=== PATIENT | female | born 1930 | race Caucasian/White ===

== ENCOUNTER 2021-09-29 15:04 | Emergency (ER) | payer MEDICARE ==
[~2021-09-29] VITALS: Ht 165.1 cm; Wt 54.6 kg
[2021-09-29 15:16] LABS: BASOPHILS % (AUTO) 1 % (0-10); EOSINOPHILS # (AUTO) 0.2 10^3/uL (0.0-0.3); EOSINOPHILS % (AUTO) 3 % (0-10); HEMATOCRIT 36 % (35-52); HEMOGLOBIN 11.3 g/dL (11.5-16.0); LYMPHOCYTES % (AUTO) 14 % (12-44); MEAN CORPUSCULAR HEMOGLOBIN 30 pg (25-34); MEAN CORPUSCULAR HGB CONC 32 g/dL (32-36); MEAN CORPUSCULAR VOLUME 93 fL (80-99); MEAN PLATELET VOLUME 10.1 fL (9.0-12.2); MONOCYTES # (AUTO) 0.4 10^3/uL (0.0-1.0); MONOCYTES % (AUTO) 6 % (0-12); NEUTROPHILS # (AUTO) 5.2 10^3/uL (1.8-7.8); NEUTROPHILS % (AUTO) 76 % (42-75); PLATELET COUNT 188 10^3/uL (130-400); WHITE BLOOD COUNT 6.9 10^3/uL (4.3-11.0)
--- NOTE | 2021-09-29 15:17 | ED General ---
General Chief Complaint: Respiratory Problems Stated Complaint: CHEST PAIN; SOB History of Present Illness Date Seen by Provider: September 29, 2021 Time Seen by Provider: 15:12 Initial Comments 89-year-old female [facility] Patient had a episode of some mild pain near her left breast. Lasted about 15 minutes and spontaneously resolved. halfway reports your oxygen was low however EMS reports when they got there it was in the upper 90s. Patient did not complain of shortness of breath. Patient denies any fever, chills, nausea or vomiting. Patient's symptoms of chest pain have resolved. Patient denies associated diaphoresis. And the pain did not radiate. Patient describes it as a sharp pain. Allergies and Home Medications Allergies Coded Allergies: bacitracin (Verified Allergy, Severe, Angioedema, 09/29/21) neomycin (Verified Allergy, Severe, Angioedema, 09/29/21) polymyxin B (Verified Allergy, Severe, Angioedema, 09/29/21) Beta-Adrenergic Agents (Verified Allergy, Unknown, Shortness of Breath, 09/29/21) sulfamethoxazole (Verified Adverse Reaction, Mild, Nausea, 09/29/21) trimethoprim (Verified Adverse Reaction, Mild, Nausea, 09/29/21) amoxicillin (Verified Adverse Reaction, Unknown, Nausea, 09/29/21) levofloxacin (Verified Adverse Reaction, Unknown, Nausea, 09/29/21) Patient Home Medication List Home Medication List Reviewed: Yes Review of Systems Review of Systems Constitutional: No chills, No fever Cardiovascular: chest pain; No palpitations, No syncope Gastrointestinal: no symptoms reported; No abdominal pain, No nausea, No vomiting Genitourinary: no symptoms reported Musculoskeletal: see HPI Skin: no symptoms reported Psychiatric/Neurological: No Symptoms Reported Hematologic/Lymphatic: No Symptoms Reported Immunological/Allergic: no symptoms reported Physical Exam Vital Signs Vital Signs - First Documented 09/29/21 15:07 Temp 36.7 Pulse 58 Resp 14 Pulse Ox 98 O2 Delivery Room Air Capillary Refill : Height, Weight, BMI Height: '" Weight: lbs. oz. 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 Skin: Normal Color, Warm/Dry Progress/Results/Core Measures Suspected Sepsis SIRS Temperature: Pulse: Respiratory Rate: Laboratory Tests 09/29/21 15:10: White Blood Count 6.9 Blood Pressure / Mean: Laboratory Tests 09/29/21 15:10: Creatinine 0.96, Platelet Count 188, Total Bilirubin 0.4 Results/Orders Lab Results Laboratory Tests Test 09/29/21 15:10 09/29/21 17:03 Range/Units White Blood Count 6.9 4.3-11.0 10^3/uL Red Blood Count 3.82 3.80-5.11 10^6/uL Hemoglobin 11.3 L 11.5-16.0 g/dL Hematocrit 36 35-52 % Mean Corpuscular Volume 93 80-99 fL Mean Corpuscular Hemoglobin 30 25-34 pg Mean Corpuscular Hemoglobin Concent 32 32-36 g/dL Red Cell Distribution Width 14.2 10.0-14.5 % Platelet Count 188 130-400 10^3/uL Mean Platelet Volume 10.1 9.0-12.2 fL Immature Granulocyte % (Auto) 0 % Neutrophils (%) (Auto) 76 H 42-75 % Lymphocytes (%) (Auto) 14 12-44 % Monocytes (%) (Auto) 6 0-12 % Eosinophils (%) (Auto) 3 0-10 % Basophils (%) (Auto) 1 0-10 % Neutrophils # (Auto) 5.2 1.8-7.8 10^3/uL Lymphocytes # (Auto) 1.0 1.0-4.0 10^3/uL Monocytes # (Auto) 0.4 0.0-1.0 10^3/uL Eosinophils # (Auto) 0.2 0.0-0.3 10^3/uL Basophils # (Auto) 0.0 0.0-0.1 10^3/uL Immature Granulocyte # (Auto) 0.0 0.0-0.1 10^3/uL Sodium Level 139 135-145 MMOL/L Potassium Level 4.4 3.6-5.0 MMOL/L Chloride Level 101 98-107 MMOL/L Carbon Dioxide Level 27 21-32 MMOL/L Anion Gap 11 5-14 MMOL/L Blood Urea Nitrogen 25 H 7-18 MG/DL Creatinine 0.96 0.60-1.30 MG/DL Estimat Glomerular Filtration Rate 57 BUN/Creatinine Ratio 26 Glucose Level 107 H 70-105 MG/DL Calcium Level 10.1 8.5-10.1 MG/DL Corrected Calcium 10.0 8.5-10.1 MG/DL Magnesium Level 1.8 1.6-2.4 MG/DL Total Bilirubin 0.4 0.1-1.0 MG/DL Aspartate Amino Transf (AST/SGOT) 18 5-34 U/L Alanine Aminotransferase (ALT/SGPT) 9 0-55 U/L Alkaline Phosphatase 111 40-136 U/L Troponin I < 0.30 < 0.30 <0.30 NG/ML Pro-B-Type Natriuretic Peptide 2208.0 H <75.0 PG/ML Total Protein 6.3 L 6.4-8.2 GM/DL Albumin 4.1 3.2-4.5 GM/DL My Orders Orders - GR,ELPIDIO L DO Chest 1 View Ap/Pa Only (09/29/21 15:11) Ekg Tracing (09/29/21 15:11) Monitor-Rhythm Ecg Trace Only (09/29/21 15:11) Cbc With Automated Diff (09/29/21 15:11) Comprehensive Metabolic Panel (09/29/21 15:11) Magnesium (09/29/21 15:11) Probnp Fs (09/29/21 15:11) Troponin I Fs (09/29/21 15:11) Troponin I Fs (09/29/21 16:48) Vital Signs/I&O 09/29/21 09/29/21 15:07 15:22 Temp 36.7 Pulse 58 Resp 14 B/P (MAP) Pulse Ox 98 O2 Delivery Room Air Room Air Capillary Refill : Progress Note : Progress Note Patient remained symptom-free while here in the ER. Patient with negative cute changes on EKG, negative x-ray for any significant pathology. She does have a small pleural effusion. As I was going over results with patient she reported that "I have actually had this going on for a long time I think I just scared them today because I thought my oxygen was a little low" discussed with patient the need to follow-up with her primary care provider for further evaluation. Patient stable and discharged home ECG Initial ECG Impression Date: September 29, 2021 Initial ECG Impression Time: 15:12 Initial ECG Rate: 56 Initial ECG Rhythm: A Fib/Flutter, PVC Initial ECG Intervals RBBB Comment irregular rhythm, appears afib with pvc Diagnostic Imaging Diagonstic Imaging: Xray Plain Films/CT/US/NM/MRI: chest Comments Date of Exam:09/29/21 CHEST 1 VIEW AP/PA ONLY INDICATION: Shortness of breath, left-sided chest pain. EXAMINATION: Chest, 09/29/2021. FINDINGS: Single view of the chest demonstrates cardiomegaly. The pulmonary vasculature appears unremarkable. The lungs are clear. There is a tiny right pleural effusion. There is no pneumothorax. There are degenerative changes in both shoulders. IMPRESSION: 1. Tiny right pleural effusion. 2. Cardiomegaly. Departure Impression Primary Impression: Nonspecific chest pain Disposition: 01 HOME, SELF-CARE Condition: Stable Departure-Patient Inst. Patient Instructions: Chest Pain That Is Not Caused by the Heart (DC), Chest Pain, Adult ED Add. Discharge Instructions: Follow-up with your primary care provider for further evaluation. Return to the ER as needed All discharge instructions reviewed with patient and/or family. Voiced underst anding. ELPIDIO GR DO September 29, 2021 15:17
--- NOTE | 2021-09-29 15:31 | Diagnostic Imaging Report ---
INDICATION: Shortness of breath, left-sided chest pain. EXAMINATION: Chest, 09/29/2021. FINDINGS: Single view of the chest demonstrates cardiomegaly. The pulmonary vasculature appears unremarkable. The lungs are clear. There is a tiny right pleural effusion. There is no pneumothorax. There are degenerative changes in both shoulders. IMPRESSION: 1. Tiny right pleural effusion. 2. Cardiomegaly. Dictated by: Dictated on workstation # [id number]
[2021-09-29 15:47] LABS: ALKALINE PHOSPHATASE 111 U/L (40-136); BILIRUBIN,TOTAL 0.4 MG/DL (0.1-1.0); BUN/CREATININE RATIO 26; CALCIUM 10.1 MG/DL (8.5-10.1); CARBON DIOXIDE 27 MMOL/L (21-32); CHLORIDE 101 MMOL/L (98-107); CREATININE SERUM 0.96 MG/DL (0.60-1.30); GFR ESTIMATED 57; GLUCOSE 107 MG/DL (70-105); MAGNESIUM 1.8 MG/DL (1.6-2.4); POTASSIUM 4.4 MMOL/L (3.6-5.0); SODIUM 139 MMOL/L (135-145)
[2021-09-29 15:48] LABS: ALANINE AMINOTRANSFERASE 9 U/L (0-55); ALBUMIN 4.1 GM/DL (3.2-4.5); TOTAL PROTEIN 6.3 GM/DL (6.4-8.2)
[2021-09-29 18:05] VITALS: BP 131/62
== END 2021-09-29 18:08 | disposition home or self-care (01) ==
LOC: ER FS 15:05
DX: R07.89 Other chest pain (principal); J91.8 Pleural effusion in other conditions classified elsewhere
CPT/HCPCS: 36415; 71045; 80053; 83735; 83880; 84484; 85025; 93005; 93041

== ENCOUNTER 2022-05-04 19:23 | Emergency (ER) | payer MEDICARE ==
--- NOTE | 2022-05-04 19:27 | ED General ---
General Stated Complaint: SLOW HEART RATE History of Present Illness Date Seen by Provider: May 04, 2022 Time Seen by Provider: 19:26 Initial Comments Patient sent out by [facility] because they were concerned about a "low heart rate" patient herself has no complaints. Reports that they were checking her oxygen and her heart rate seem to be in the 50s. Patient is on diltiazem. Patient complaint is that she getting sleep last night because they kept checking her heart rate. Other systemic complaints Allergies and Home Medications Allergies Coded Allergies: bacitracin (Verified Allergy, Severe, Angioedema, 09/29/21) neomycin (Verified Allergy, Severe, Angioedema, 09/29/21) polymyxin B (Verified Allergy, Severe, Angioedema, 09/29/21) Beta-Adrenergic Agents (Verified Allergy, Unknown, Shortness of Breath, 09/29/21) sulfamethoxazole (Verified Adverse Reaction, Mild, Nausea, 09/29/21) trimethoprim (Verified Adverse Reaction, Mild, Nausea, 09/29/21) amoxicillin (Verified Adverse Reaction, Unknown, Nausea, 09/29/21) levofloxacin (Verified Adverse Reaction, Unknown, Nausea, 09/29/21) Patient Home Medication List Home Medication List Reviewed: Yes Review of Systems Review of Systems Constitutional: No chills, No fever EENTM: no symptoms reported Respiratory: no symptoms reported Cardiovascular: see HPI Gastrointestinal: no symptoms reported Genitourinary: no symptoms reported Musculoskeletal: no symptoms reported Skin: no symptoms reported Psychiatric/Neurological: No Symptoms Reported Physical Exam Vital Signs Vital Signs - First Documented 05/04/22 19:23 Temp 36.8 Pulse 64 Resp 20 B/P (MAP) 102/60 (74) Pulse Ox 99 O2 Delivery Room Air Capillary Refill : Height, Weight, BMI Height: '" Weight: lbs. oz. kg; 20.00 BMI Method: General Appearance: No Apparent Distress, WD/WN HEENT: Moist Mucous Membranes Neck: Full Range of Motion, Supple Respiratory: Lungs Clear, Normal Breath Sounds Cardiovascular: Regular Rate, Rhythm, No Edema Gastrointestinal: Soft Extremity: Normal Capillary Refill, Normal Inspection Neurologic/Psychiatric: Alert, Oriented x3, Normal Mood/Affect Skin: Normal Color, Warm/Dry Progress/Results/Core Measures Suspected Sepsis SIRS Temperature: Pulse: Respiratory Rate: Laboratory Tests 05/04/22 19:41: White Blood Count 7.3 Blood Pressure / Mean: Laboratory Tests 05/04/22 19:41: Creatinine 1.16, Platelet Count 184 Results/Orders Lab Results Laboratory Tests Test 05/04/22 19:41 Range/Units White Blood Count 7.3 4.3-11.0 10^3/uL Red Blood Count 3.62 L 3.80-5.11 10^6/uL Hemoglobin 11.5 11.5-16.0 g/dL Hematocrit 34 L 35-52 % Mean Corpuscular Volume 95 80-99 fL Mean Corpuscular Hemoglobin 32 25-34 pg Mean Corpuscular Hemoglobin Concent 34 32-36 g/dL Red Cell Distribution Width 12.9 10.0-14.5 % Platelet Count 184 130-400 10^3/uL Mean Platelet Volume 11.1 9.0-12.2 fL Immature Granulocyte % (Auto) 0 % Neutrophils (%) (Auto) 73 42-75 % Lymphocytes (%) (Auto) 13 12-44 % Monocytes (%) (Auto) 8 0-12 % Eosinophils (%) (Auto) 5 0-10 % Basophils (%) (Auto) 1 0-10 % Neutrophils # (Auto) 5.3 1.8-7.8 10^3/uL Lymphocytes # (Auto) 0.9 L 1.0-4.0 10^3/uL Monocytes # (Auto) 0.6 0.0-1.0 10^3/uL Eosinophils # (Auto) 0.4 H 0.0-0.3 10^3/uL Basophils # (Auto) 0.1 0.0-0.1 10^3/uL Immature Granulocyte # (Auto) 0.0 0.0-0.1 10^3/uL Sodium Level 137 135-145 MMOL/L Potassium Level 4.1 3.6-5.0 MMOL/L Chloride Level 103 98-107 MMOL/L Carbon Dioxide Level 27 21-32 MMOL/L Anion Gap 7 5-14 MMOL/L Blood Urea Nitrogen 31 H 7-18 MG/DL Creatinine 1.16 0.60-1.30 MG/DL Estimat Glomerular Filtration Rate 45 BUN/Creatinine Ratio 27 Glucose Level 102 70-105 MG/DL Calcium Level 10.2 H 8.5-10.1 MG/DL My Orders Orders - GR,ELPIDIO L DO Basic Metabolic Panel (05/04/22 19:27) Cbc With Automated Diff (05/04/22 19:27) Ekg Tracing (05/04/22 19:27) Monitor-Rhythm Ecg Trace Only (05/04/22 19:27) Vital Signs/I&O 05/04/22 05/04/22 19:23 20:35 Temp 36.8 36.8 Pulse 64 65 Resp 20 21 B/P (MAP) 102/60 (74) 141/68 Pulse Ox 99 98 O2 Delivery Room Air Room Air Capillary Refill : Progress Note : Progress Note Patient's heart rate ranged from about 58-70. No concerning rhythm changes or concerning lab findings. She is stable and with no complaints throughout her stay. Patient can follow-up with her primary care provider with any concerns from the [facility]-way. However her heart rate is acceptable based on the medication she is on. ECG Initial ECG Impression Date: May 04, 2022 Initial ECG Impression Time: 19:29 Initial ECG Rate: 64 Initial ECG Rhythm: PVC Initial ECG Impression: Nonspecific Changes Initial ECG Comparisson: Unchanged (09/29/21) Comment Occasional PVCs,, nonspecific rhythm, no acute changes from 10/11/2021 Departure Impression Primary Impression: Heart rate problem Disposition: 01 HOME, SELF-CARE Condition: Stable Departure-Patient Inst. Referrals: YESENIA DUENAS MD (PCP/Family) Primary Care Physician Patient Instructions: Bradycardia (DC) Add. Discharge Instructions: Follow-up with a primary care provider as needed ELPIDIO GR DO May 04, 2022 19:27
[2022-05-04 19:48] LABS: BASOPHILS # (AUTO) 0.1 10^3/uL (0.0-0.1); BASOPHILS % (AUTO) 1 % (0-10); EOSINOPHILS # (AUTO) 0.4 10^3/uL (0.0-0.3); EOSINOPHILS % (AUTO) 5 % (0-10); HEMATOCRIT 34 % (35-52); HEMOGLOBIN 11.5 g/dL (11.5-16.0); LYMPHOCYTES # (AUTO) 0.9 10^3/uL (1.0-4.0); LYMPHOCYTES % (AUTO) 13 % (12-44); MEAN CORPUSCULAR HEMOGLOBIN 32 pg (25-34); MEAN CORPUSCULAR HGB CONC 34 g/dL (32-36); MEAN CORPUSCULAR VOLUME 95 fL (80-99); MEAN PLATELET VOLUME 11.1 fL (9.0-12.2); MONOCYTES # (AUTO) 0.6 10^3/uL (0.0-1.0); MONOCYTES % (AUTO) 8 % (0-12); NEUTROPHILS # (AUTO) 5.3 10^3/uL (1.8-7.8); NEUTROPHILS % (AUTO) 73 % (42-75); PLATELET COUNT 184 10^3/uL (130-400); WHITE BLOOD COUNT 7.3 10^3/uL (4.3-11.0)
[2022-05-04 20:10] LABS: CALCIUM 10.2 MG/DL (8.5-10.1); CREATININE SERUM 1.16 MG/DL (0.60-1.30); POTASSIUM 4.1 MMOL/L (3.6-5.0)
[2022-05-04 20:35] VITALS: BP 141/68
== END 2022-05-04 20:35 | disposition home or self-care (01) ==
LOC: EDUNIT# 19:23 → ER FS 19:24
DX: R00.1 Bradycardia, unspecified (principal)
CPT/HCPCS: 36415; 80048; 85025; 93005; 93041

== ENCOUNTER 2022-11-10 14:14 | Emergency (ER) | payer MEDICARE ==
--- NOTE | 2022-11-10 14:20 | ED Fall/Injury ---
General Chief Complaint: Hip/Pelvic Problems Stated Complaint: FALL History of Present Illness Date Seen by Provider: Nov 10, 2022 Time Seen by Provider: 14:20 Initial Comments 89-year-old female from assisted living who is on Coumadin and has a history of 3 hip replacements and knee replacement, is brought in by EMS with complaints of tripping and falling today, resulting in a laceration to her right eyebrow and right hip, thigh, knee pain. Patient states that she was trying to tie her shoelaces when she tripped over her shoelaces and feet and fell. Denies dizziness, lightheadedness, blurry vision, headache, neck pain, LOC, nausea vomiting. Allergies and Home Medications Allergies Coded Allergies: bacitracin (Verified Allergy, Severe, Angioedema, 09/29/21) neomycin (Verified Allergy, Severe, Angioedema, 09/29/21) polymyxin B (Verified Allergy, Severe, Angioedema, 09/29/21) Beta-Adrenergic Agents (Verified Allergy, Unknown, Shortness of Breath, 09/29/21) sulfamethoxazole (Verified Adverse Reaction, Mild, Nausea, 09/29/21) trimethoprim (Verified Adverse Reaction, Mild, Nausea, 09/29/21) amoxicillin (Verified Adverse Reaction, Unknown, Nausea, 09/29/21) levofloxacin (Verified Adverse Reaction, Unknown, Nausea, 09/29/21) Patient Home Medication List Home Medication List Reviewed: Yes Review of Systems Review of Systems Constitutional: no symptoms reported Eyes: No Symptoms Reported Ears, Nose, Mouth, Throat: no symptoms reported Respiratory: no symptoms reported Cardiovascular: no symptoms reported Gastrointestinal: no symptoms reported Genitourinary: no symptoms reported Musculoskeletal: see HPI, joint pain Skin: see HPI, other (Right eyebrow laceration) Psychiatric/Neurological: No Symptoms Reported Past Vkvhylp-Sylegc-Zhbfve Hx Immunizations Up To Date First/Initial COVID19 Vaccinat: unknown Past Medical History Surgery/Hospitalization HX: A Fib history, knee replacements, ORIF R hip, R hip replacement Physical Exam Vital Signs Vital Signs - First Documented 11/10/22 14:36 Temp 35.6 Pulse 62 Resp 16 B/P (MAP) 122/70 (87) Pulse Ox 99 O2 Delivery Room Air Capillary Refill : Height, Weight, BMI Height: '" Weight: lbs. oz. kg; 20.00 BMI Method: General Appearance: WD/WN, no apparent distress HEENT: PERRL/EOMI, normal ENT inspection Neck: non-tender, full range of motion, normal inspection Cardiovascular: regular rate, rhythm Respiratory: lungs clear Gastrointestinal: non tender, soft Pelvic: normal external exam Back: normal inspection, no vertebral tenderness Extremities: normal range of motion, normal inspection, no pedal edema, no calf tenderness, pelvis stable, other (Right-sided hip, upper lateral one third of the thigh, and right knee tenderness. N/V bundle intact, ROM appears restricted only due to pain.) Skin: other (Two laceration near right eyebrow, the first is 1.25cm long with overlying skin missing. Second laceration is parallel to the first and is 0.25cm long, also not bleeding. Clean wounds. ) Moroni Coma Score Best Eye Response: (4) Open Spontaneously Best Verbal Response: (5) Oriented Best Motor Response: (6) Obeys Commands Moroni Total: 15 Progress/Results/Core Measures Results/Orders My Orders Orders - CHRISTOPHER ARENAS MD Femur 2 View Right (11/10/22 14:21) Knee 2 View Right (11/10/22 14:21) Pelvis With Right Hip 2-3 View (11/10/22 14:21) Ct Head Wo (11/10/22 14:22) Vital Signs/I&O 11/10/22 14:36 Temp 35.6 Pulse 62 Resp 16 B/P (MAP) 122/70 (87) Pulse Ox 99 O2 Delivery Room Air Progress Progress Note : Progress Note 1. TRIP & FALL: BONE CONTUSION - Pt is on Coumadin - CT HEAD: no acute findings - XR RIGHT HIP/ PELVIS: No acute findings - XR RIGHT FEMUR/ KNEE: no acute findings. 2. RIGHT EYEBROW LACERATION: - 2 Steristrips placed on the first lac and 1 steri-strip placed on the second lac. with good apposition. - Wound care instructions given Diagnostic Imaging Diagonstic Imaging: Xray, CT Plain Films/CT/US/NM/MRI: hip, femur, knee, head Comments [facility], [place] NAME: STACEY SÁNCHEZ [facility] REC#: [id number] PT STATUS: REG ER : 1930 PHYSICIAN: CHRISTOPHER ARENAS MD ADMIT DATE: 11/10/22/ER FS Draft Date of Exam:11/10/22 FEMUR 2 VIEW RIGHT INDICATION: Fall with right femur pain. 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 There is no evidence of an acute fracture. Atherosclerotic calcifications are noted. No dislocation or other complication is seen. IMPRESSION: No acute right femur abnormality. Dictated on workstation # [id number] Dict: 11/10/22 1511 Trans: 11/10/22 1515 [facility] [id number] Interpreted by: HERBIE HOPE MD Electronically signed by: [facility], [place] NAME: STACEY SÁNCHEZ [facility] REC#: [id number] PT STATUS: REG ER : 1930 PHYSICIAN: CHRISTOPHER ARENAS MD ADMIT DATE: 11/10/22/ER FS Draft Date of Exam:11/10/22 PELVIS WITH RIGHT HIP 2-3 VIEW INDICATION: Fall, with pelvic and right hip injuries. AP view of the pelvis is obtained with coned AP and frog-leg views of right hip. 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 There is no evidence of acute fracture. Lower lumbar degenerative findings are present. There is aortoiliac and femoral atherosclerotic calcification. IMPRESSION: No acute abnormality. Dictated on workstation # [id number] Dict: 11/10/22 1512 Trans: 11/10/22 1515 [id number] Interpreted by: HERBIE HOPE MD Electronically signed by: [employer] [facility] [place], [place] NAME: STACEY SÁNCHEZ [facility] REC#: [id number] PT STATUS: REG ER : 1930 PHYSICIAN: CHRISTOPHER ARENAS MD ADMIT DATE: 11/10/22/ER FS Draft Date of Exam:11/10/22 KNEE 2 VIEW RIGHT INDICATION: Fall, with right knee pain. FINDINGS: AP and lateral views of the right knee reveal total arthroplasty. There may be small amount of joint fluid. No acute fracture is seen. Atherosclerotic calcifications are noted. IMPRESSION: No acute abnormality identified. Dictated on workstation # [id number] Dict: 11/10/22 1509 Trans: 11/10/22 1514 [id number] Interpreted by: HERBIE HOPE MD Electronically signed by: PT STATUS: REG ER : 1930 PHYSICIAN: CHRISTOPHER ARENAS MD ADMIT DATE: 11/10/22/ER FS Signed Date of Exam:11/10/22 CT HEAD WO PROCEDURE: CT head without contrast. TECHNIQUE: Multiple contiguous axial images were obtained through the brain without the use of intravenous contrast. Auto Exposure Controls were utilized during the CT exam to meet ALARA standards for radiation dose reduction. INDICATION: Fall. COMPARISON: None. FINDINGS: No acute intracranial hemorrhage. The kee-white matter differentiation is preserved. Extensive chronic small vessel ischemic disease. Mild generalized prominence of the ventricles and cortical sulci. No intracranial mass or fluid collection. No midline shift or mass effect. The sella is normal. Scattered calcifications of the intracranial vasculature. The subarachnoid cisterns are maintained. The paranasal sinuses and mastoids are clear. The globes and orbits are normal. The skull is intact. IMPRESSION: No acute intracranial hemorrhage. No large vascular territory albert-white loss. No intracranial mass, midline shift, or hydrocephalus. Extensive chronic small vessel ischemic disease. Mild global volume loss. Dictated by: Dictated on workstation # [id number] Dict: 11/10/22 1446 Trans: 11/10/22 1448 [facility] [place] [id number] Interpreted by: ESTHER WILLSON DO Electronically signed by: ESTHER WILLSON DO 11/10/22 1448 Departure Impression Primary Impression: Fall on same level from tripping Additional Impressions: Contusion of bone Laceration of right eyebrow without complication Qualified Codes: S01.111A - Laceration without foreign body of right eyelid and periocular area, initial encounter Disposition: 01 HOME, SELF-CARE Condition: Stable Departure-Patient Inst. Referrals: [facility] (PCP/Family) Primary Care Physician Patient Instructions: Getting Up From a Fall, Minor Contusion ED, Preventing Falls ED, Wound Care ED Add. Discharge Instructions: - Advised Tylenol for pain, Lidoderm patches or Asper cream - Ice application advised - Follow up with Ortho/ PCP as needed -Wound care instructions given All discharge instructions reviewed with patient and/or family. Voiced understanding. CHRISTOPHER ARENAS MD Nov 10, 2022 14:20
[2022-11-10 14:36] VITALS: BP 122/70
--- NOTE | 2022-11-10 14:49 | Diagnostic Imaging Report ---
PROCEDURE: CT head without contrast. TECHNIQUE: Multiple contiguous axial images were obtained through the brain without the use of intravenous contrast. Auto Exposure Controls were utilized during the CT exam to meet ALARA standards for radiation dose reduction. INDICATION: Fall. COMPARISON: None. FINDINGS: No acute intracranial hemorrhage. The kee-white matter differentiation is preserved. Extensive chronic small vessel ischemic disease. Mild generalized prominence of the ventricles and cortical sulci. No intracranial mass or fluid collection. No midline shift or mass effect. The sella is normal. Scattered calcifications of the intracranial vasculature. The subarachnoid cisterns are maintained. The paranasal sinuses and mastoids are clear. The globes and orbits are normal. The skull is intact. IMPRESSION: No acute intracranial hemorrhage. No large vascular territory albert-white loss. No intracranial mass, midline shift, or hydrocephalus. Extensive chronic small vessel ischemic disease. Mild global volume loss. Dictated by: Dictated on workstation # [id number]
--- NOTE | 2022-11-10 15:14 | Diagnostic Imaging Report ---
INDICATION: Fall, with right knee pain. FINDINGS: AP and lateral views of the right knee reveal total arthroplasty. There may be small amount of joint fluid. No acute fracture is seen. Atherosclerotic calcifications are noted. IMPRESSION: No acute abnormality identified. Dictated by: Dictated on workstation # [id number]
--- NOTE | 2022-11-10 15:15 | Diagnostic Imaging Report ---
INDICATION: Fall, with pelvic and right hip injuries. AP view of the pelvis is obtained with coned AP and frog-leg views of right hip. 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 There is no evidence of acute fracture. Lower lumbar degenerative findings are present. There is aortoiliac and femoral atherosclerotic calcification. IMPRESSION: No acute abnormality. Dictated by: Dictated on workstation # [id number]
--- NOTE | 2022-11-10 15:15 | Diagnostic Imaging Report ---
INDICATION: Fall with right femur pain. 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 There is no evidence of an acute fracture. Atherosclerotic calcifications are noted. No dislocation or other complication is seen. IMPRESSION: No acute right femur abnormality. Dictated by: Dictated on workstation # [id number]
== END 2022-11-10 15:31 | disposition home or self-care (01) ==
LOC: EDUNIT# 14:14 → ER FS 14:15
DX: S01.111A Laceration without foreign body of right eyelid and periocular area, initial encounter (principal); S80.01XA Contusion of right knee, initial encounter; S70.01XA Contusion of right hip, initial encounter; Z96.641 Presence of right artificial hip joint; Z96.651 Presence of right artificial knee joint; Z79.01 Long term (current) use of anticoagulants; W01.0XXA Fall on same level from slipping, tripping and stumbling without subsequent striking against object, initial encounter
CPT/HCPCS: 70450; 73502; 73552; 73560

== ENCOUNTER 2022-11-12 16:34 | Emergency (ER) | payer MEDICARE ==
[2022-11-12 16:35] VITALS: BP 147/63
[2022-11-12] MEDS ORDERED: HYDROcodone/APAP 5 MG/325 MG (LORTAB) TAB PO ONE (16:45)
[2022-11-12] MEDS ORDERED: ACHD5005 PO (16:50)
--- NOTE | 2022-11-12 16:50 | ED Hip Pain/Injury ---
General Chief Complaint: Hip/Pelvic Problems Stated Complaint: RT HIP INJ/PAIN Source: patient, family (son) Exam Limitations: no limitations History of Present Illness Date Seen by Provider: Nov 12, 2022 Time Seen by Provider: 16:37 Initial Comments 89-year-old female presents to the emergency department for continued right hip pain. She was seen on Tuesday after she bent over to tie her shoe at her assisted living home. She fell down striking the right hip. She also struck the right face and has stitches above her right eyebrow. She has been using Tylenol for pain but has continued pain though she has been able to ambulate. Record review shows she had a CT of her head and x-ray of her chest hip and fem ur all of which were negative at her initial evaluation. Has had no new injuries. All other systems reviewed and negative except documented per HPI. Voice recognition software was used to help create this chart Allergies and Home Medications Allergies Coded Allergies: bacitracin (Verified Allergy, Severe, Angioedema, 09/29/21) neomycin (Verified Allergy, Severe, Angioedema, 09/29/21) polymyxin B (Verified Allergy, Severe, Angioedema, 09/29/21) Beta-Adrenergic Agents (Verified Allergy, Unknown, Shortness of Breath, 09/29/21) sulfamethoxazole (Verified Adverse Reaction, Mild, Nausea, 09/29/21) trimethoprim (Verified Adverse Reaction, Mild, Nausea, 09/29/21) amoxicillin (Verified Adverse Reaction, Unknown, Nausea, 09/29/21) levofloxacin (Verified Adverse Reaction, Unknown, Nausea, 09/29/21) Patient Home Medication List Home Medication List Reviewed: Yes Review of Systems Constitutional: see HPI Past Nhpjaii-Slkboz-Sdpqpz Hx Patient Social History Tobacco Use?: No Use of E-Cig and/or Vaping dev: No Substance use?: No Alcohol Use?: No Immunizations Up To Date First/Initial COVID19 Vaccinat: unknown Past Medical History Surgery/Hospitalization HX: A Fib history, knee replacements, ORIF R hip, R hip replacement Physical Exam Vital Signs Capillary Refill : Height, Weight, BMI Height: '" Weight: lbs. oz. kg; 20.00 BMI Method: General Appearance: No Apparent Distress, WD/WN HEENT: Normal ENT Inspection, Pharynx Normal, Other (Stitches right eyebrow healing well) Neck: Full Range of Motion, Normal Inspection, Non Tender, Supple Cardiovascular: Regular Rate, Rhythm, No Murmur Respiratory: Chest Non Tender, Lungs Clear, Normal Breath Sounds Gastrointestinal: Normal Bowel Sounds, No Organomegaly, No Pulsatile Mass, Non Tender, Soft Extremity: Normal Capillary Refill, Normal Inspection, Normal Range of Motion, No Calf Tenderness, No Pedal Edema, Other (Tenderness palpation right posterior lateral hip. No shortening, rotation. Neurovascular motor and sensory intact. I am ultimately able to take the hip through the range of motion but with some pain.) Neurologic/Psychiatric: Alert, Oriented x3, No Motor/Sensory Deficits Skin: Normal Color, Warm/Dry Departure Communication (Admissions) Patient is hemodynamically stable, neurovascular motor and sensory intact. No new injuries. She is ambulatory with some pain. There is no indication for repeat imaging at this time I think we need to focus on more aggressive pain control. She is comfortable with this plan as is her son. She is discharged with hydrocodone Impression Primary Impression: Contusion of hip Qualified Codes: S70.01XD - Contusion of right hip, subsequent encounter Disposition: HOME, SELF-CARE Condition: Stable Departure-Patient Inst. Referrals: CHRIS FONTANA APRN (PCP) Primary Care Physician [facility] (Family) Primary Care Physician Patient Instructions: Contusion (DC) Add. Discharge Instructions: Use hydrocodone as needed for pain. Do not drive or make important decisions while taking this as it may make you drowsy. You may also want to consider stool softener as it can cause constipation. Return to the emergency department for any severe concerns. Follow-up with your primary doctor for any nonemergent needs. All discharge instructions reviewed with patient and/or family. Voiced understanding. Scripts Hydrocodone/Acetaminophen (Hydrocodone-Acetamin 5-325 mg) 5 Mg-325 Mg Tablet 1 TAB PO Q4H PRN for PAIN-MODERATE (5-7) for 3 Days, #12 TAB Prov: COLTON DAVIS DO 11/12/22 COLTON DAVIS DO Nov 12, 2022 16:50
== END 2022-11-12 17:20 | disposition home or self-care (01) ==
LOC: EDUNIT# 16:34 → ER FS 16:35
DX: S70.01XD Contusion of right hip, subsequent encounter (principal); Z96.641 Presence of right artificial hip joint; Z28.311 Partially vaccinated for COVID-19; W18.30XD Fall on same level, unspecified, subsequent encounter; W22.8XXD Striking against or struck by other objects, subsequent encounter; Y92.009 Unspecified place in unspecified non-institutional (private) residence as the place of occurrence of the external cause
CPT/HCPCS: 99283

== ENCOUNTER 2022-11-16 12:04 | Emergency (ER) | payer MEDICARE ==
[~2022-11-16] VITALS: Ht 165.1 cm; Wt 65.0 kg
[~2022-11-16 12:04] MED LIST: ACHD5005 PO
[2022-11-16] MEDS ORDERED: HYDROcodone/APAP 5 MG/325 MG (LORTAB) TAB PO ONE (12:15)
--- NOTE | 2022-11-16 12:18 | ED Fall/Injury ---
General Chief Complaint: Trauma-Non Activation Stated Complaint: FALL; HIP PAIN Source: patient, RN/MD, EMS, snf records, old records History of Present Illness Date Seen by Provider: Nov 16, 2022 Time Seen by Provider: 19:52 Initial Comments 89-year-old female with past medical history of A-fib on warfarin most notably coming in via EMS from her assisted living after a fall. She states she was trying to get to the bathroom too quickly, tripped, landing on her left hip and hitting the left side of her head. Did not pass out remembers all events. Having left hip pain which the assisted living nurse stated that the patient was unable to ambulate. The patient had a couple falls over the past few days, this is her third ER visit within the past week for mechanical falls. The first visit, she had a CT head and x-rays which were all negative for acute findings. She has been taking hydrocodone as needed for pain, last dose last night. Otherwise denying any other acute complaints. Allergies and Home Medications Allergies Coded Allergies: bacitracin (Verified Allergy, Severe, Angioedema, 09/29/21) neomycin (Verified Allergy, Severe, Angioedema, 09/29/21) polymyxin B (Verified Allergy, Severe, Angioedema, 09/29/21) Beta-Adrenergic Agents (Verified Allergy, Unknown, Shortness of Breath, ) sulfamethoxazole (Verified Adverse Reaction, Mild, Nausea, 09/29/21) trimethoprim (Verified Adverse Reaction, Mild, Nausea, 09/29/21) amoxicillin (Verified Adverse Reaction, Unknown, Nausea, 09/29/21) levofloxacin (Verified Adverse Reaction, Unknown, Nausea, 09/29/21) Patient Home Medication List Home Medication List Reviewed: Yes Hydrocodone/Acetaminophen (Hydrocodone-Acetamin 5-325 mg) 5 Mg-325 Mg Tablet, 1 TAB PO Q4H PRN for PAIN-MODERATE (5-7) Prescribed by: COLTON DAVIS MD on 11/12/22 1501 Review of Systems Review of Systems Constitutional: No fever Eyes: No Symptoms Reported Ears, Nose, Mouth, Throat: no symptoms reported Respiratory: no symptoms reported Cardiovascular: no symptoms reported Gastrointestinal: no symptoms reported Genitourinary: frequency Musculoskeletal: see HPI Skin: no symptoms reported Past Yiutfpt-Rnqmua-Nrhrhz Hx Patient Social History Tobacco Use?: No Use of E-Cig and/or Vaping dev: No Substance use?: No Alcohol Use?: No Pt feels they are or have been: No Immunizations Up To Date First/Initial COVID19 Vaccinat: unknown Second COVID19 Vaccination Luis Daniel: unknown Third COVID19 Vaccination Date: unknown Past Medical History Surgery/Hospitalization HX: A Fib history, knee replacements, ORIF R hip, R hip replacement Physical Exam Vital Signs Vital Signs - First Documented 11/16/22 12:05 Temp 36.5 Pulse 60 Resp 16 B/P (MAP) 128/61 (83) Pulse Ox 98 O2 Delivery Room Air Capillary Refill : Height, Weight, BMI Height: '" Weight: lbs. oz. kg; 20.00 BMI Method: General Appearance: WD/WN, no apparent distress HEENT: PERRL/EOMI, normal ENT inspection, pharynx normal Neck: non-tender, full range of motion, supple, normal inspection Cardiovascular: no edema, irregularly irregular Respiratory: chest non-tender, lungs clear, normal breath sounds, no respiratory distress, no accessory muscle use Gastrointestinal: normal bowel sounds, non tender, soft; No distended, No guarding, No rebound Back: normal inspection, no CVA tenderness, no vertebral tenderness Extremities: normal range of motion, normal inspection, no pedal edema, no calf tenderness, normal capillary refill, other (Some pain along the left lateral hip, some pain with logroll, but she is able to range the hip, normal distal pulses and sensation, normal neurovascular exam otherwise) Neurologic/Psychiatric: no motor/sensory deficits, alert, normal mood/affect Skin: normal color, warm/dry [place] Coma Score Best Eye Response: (4) Open Spontaneously Best Verbal Response: (5) Oriented Best Motor Response: (6) Obeys Commands Progress/Results/Core Measures Results/Orders Lab Results Laboratory Tests Test 11/16/22 12:45 11/16/22 13:10 Range/Units Urine Color PALE YELLOW Urine Clarity CLEAR Urine pH 7.0 5-9 Urine Specific [place] 1.010 L 1.016-1.022 Urine Protein NEGATIVE NEGATIVE Urine Glucose (UA) NEGATIVE NEGATIVE Urine Ketones NEGATIVE NEGATIVE Urine Nitrite NEGATIVE NEGATIVE Urine Bilirubin NEGATIVE NEGATIVE Urine Urobilinogen 0.2 < = 1.0 MG/DL Urine Leukocyte Esterase NEGATIVE NEGATIVE Urine RBC (Auto) NEGATIVE NEGATIVE Urine RBC NONE /HPF Urine WBC 2-5 /HPF Urine Squamous Epithelial Cells NONE /HPF Urine Crystals NONE /LPF Urine Bacteria NEGATIVE /HPF Urine Casts NONE /LPF Urine Mucus NEGATIVE /LPF Urine Culture Indicated NO White Blood Count 14.9 H 4.3-11.0 10^3/uL Red Blood Count 3.41 L 3.80-5.11 10^6/uL Hemoglobin 11.1 L 11.5-16.0 g/dL Hematocrit 33 L 35-52 % Mean Corpuscular Volume 98 80-99 fL Mean Corpuscular Hemoglobin 33 25-34 pg Mean Corpuscular Hemoglobin Concent 33 32-36 g/dL Red Cell Distribution Width 13.1 10.0-14.5 % Platelet Count 171 130-400 10^3/uL Mean Platelet Volume 10.9 9.0-12.2 fL Immature Granulocyte % (Auto) 1 % Neutrophils (%) (Auto) 89 H 42-75 % Lymphocytes (%) (Auto) 4 L 12-44 % Monocytes (%) (Auto) 5 0-12 % Eosinophils (%) (Auto) 1 0-10 % Basophils (%) (Auto) 0 0-10 % Neutrophils # (Auto) 13.2 H 1.8-7.8 10^3/uL Lymphocytes # (Auto) 0.7 L 1.0-4.0 10^3/uL Monocytes # (Auto) 0.8 0.0-1.0 10^3/uL Eosinophils # (Auto) 0.1 0.0-0.3 10^3/uL Basophils # (Auto) 0.1 0.0-0.1 10^3/uL Immature Granulocyte # (Auto) 0.1 0.0-0.1 10^3/uL Neutrophils % (Manual) 87 % Lymphocytes % (Manual) 5 % Monocytes % (Manual) 6 % Eosinophils % (Manual) 1 % Basophils % (Manual) 0 % Band Neutrophils 1 % Platelet Estimate NORMAL Percent Immature Platelet Fraction 1.9 0.0-7.6 % Poikilocytosis Anisocytosis Macrocytosis SLIGHT Crenated Cell SLIGHT Elliptocytes SLIGHT Prothrombin Time 23.1 H 12.2-14.7 SEC INR Comment 2.0 H 0.8-1.4 Activated Partial Thromboplast Time 39 H 24-35 SEC Sodium Level 135 135-145 MMOL/L Potassium Level 4.6 3.6-5.0 MMOL/L Chloride Level 101 98-107 MMOL/L Carbon Dioxide Level 27 21-32 MMOL/L Anion Gap 7 5-14 MMOL/L Blood Urea Nitrogen 28 H 7-18 MG/DL Creatinine 0.91 0.60-1.30 MG/DL Estimat Glomerular Filtration Rate 60 BUN/Creatinine Ratio 31 Glucose Level 88 70-105 MG/DL Calcium Level 9.8 8.5-10.1 MG/DL Corrected Calcium 10.4 H 8.5-10.1 MG/DL Total Bilirubin 0.5 0.1-1.0 MG/DL Aspartate Amino Transf (AST/SGOT) 40 H 5-34 U/L Alanine Aminotransferase (ALT/SGPT) 29 0-55 U/L Alkaline Phosphatase 123 40-136 U/L Total Protein 5.6 L 6.4-8.2 GM/DL Albumin 3.2 3.2-4.5 GM/DL My Orders Orders - AXEL KRAUS MD Ct Head/Cervical Spine Wo (11/16/22 12:11) Ua Culture If Indicated (11/16/22 12:11) Hydrocodone/Apap 5/325 Tablet (Lortab 5 (11/16/22 12:15) Ct Pelvis Wo (11/16/22 12:11) Cbc With Automated Diff (11/16/22 13:04) Comprehensive Metabolic Panel (11/16/22 13:04) Protime With Inr (11/16/22 13:04) Partial Thromboplastin Time (11/16/22 13:04) Manual Differential (11/16/22 13:10) Medications Given in ED Current Medications Medications Dose Ordered Sig/Bárbara Route Start Time Stop Time Status Last Admin Dose Admin Acetaminophen/ Hydrocodone Bitart 1 ea ONCE ONCE PO 11/16/22 12:15 11/16/22 12:16 DC 11/16/22 12:37 1 EA Vital Signs/I&O 11/16/22 11/16/22 12:05 15:08 Temp 36.5 Pulse 60 60 Resp 16 16 B/P (MAP) 128/61 (83) 119/61 Pulse Ox 98 98 O2 Delivery Room Air Room Air Progress Progress Note : Progress Note 89yoF with above history coming in due to left hip pain after mechanical fall. ABCs were intact and vitals are stable on presentation with a GCS of 15. She has left hip pain on palpation but is neurovascularly intact to all extremities. CT head and cervical spine ordered because of her age as well as she is on warf alisson. On my interpretation I do not see any obvious intracranial hemorrhage. These were negative for acute findings per the radiologist. CT pelvis obtained to look for occult fracture given recent x-rays that were negative. There nondisplaced fractures of the pubic rami on the left as well as sacral ala. I contacted Dr. Leigh in consultation, he agrees that these would be non operative, she can be weightbearing as tolerated with a walker if needed. I then contacted Dr. Sinha, she will admit the patient under inpatient status to [facility] for further evaluation and management since the patient was unable to bear weight in the ER with me. Diagnostic Imaging Diagonstic Imaging: CT (head, c spine, pelvis) Comments [facility] [place] NAME: STACEY SÁNCHEZ [facility] REC#: [id number] PT STATUS: REG ER : 1930 PHYSICIAN: AXEL KRAUS MD ADMIT DATE: 11/16/22/ER FS Draft Date of Exam:11/16/22 CT PELVIS WO PROCEDURE: CT pelvis without contrast. TECHNIQUE: Multiple contiguous axial images were obtained through the pelvis without the use of intravenous contrast. Sagittal and coronal reformations were performed. Auto Exposure Controls were utilized during the CT exam to meet ALARA standards for radiation dose reduction. INDICATION: Left hip pain, unable to bear weight. COMPARISON: None available. FINDINGS: There are acute fractures of the bilateral sacral ala located lateral to the sacral foramen. The fractures have less than 1 mm of diastasis and are essentially nondisplaced. There are also acute fractures involving the left superior and inferior pubic rami, which are nondisplaced. No fracture in the right obturator ring. No fracture in the iliac wings. Ischial tuberosities are intact. 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 No osteolysis is seen. No free pelvic fluid. No pelvic or inguinal lymphadenopathy is appreciated. 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 IMPRESSION: 1. Acute nondisplaced fracture of the left superior and inferior pubic rami. 2. Nondisplaced fractures of the bilateral sacral ala are also acute. Dictated on workstation # [id number] Dict: 11/16/22 1242 Trans: 11/16/22 1252 [id number] Interpreted by: ALLI ARTEAGA MD Electronically signed by: [facility] [place] NAME: STACEY SÁNCHEZ REC#: [id number] PT STATUS: REG ER : 1930 PHYSICIAN: AXEL KRAUS MD ADMIT DATE: 11/16/22/ER FS Draft Date of Exam:11/16/22 CT HEAD/CERVICAL SPINE WO CLINICAL INDICATION: Patient with multiple falls. EXAM: Axial Head CT without IV contrast with sagittal and coronal reformations. Axial CT scan of the cervical spine with sagittal and coronal reformations. Auto Exposure Controls were utilized during the CT exam to meet ALARA standards for radiation dose reduction. COMPARISON: Head CT without contrast dated 11/10/2022. FINDINGS: HEAD CT: There is no evidence of acute cerebral infarct, intracranial hemorrhage, or gross mass effect. Stable diffuse brain parenchymal volume loss. There are stable diffuse patchy and confluent areas of low-attenuation white matter changes involving both cerebral hemispheres, likely representing chronic small vessel ischemic disease and leukoaraiosis. There is normal kee-white matter distinction. There is no significant midline shift or herniation. There is no evidence of hydrocephalus. The basal cisterns are unremarkable. The skull, extracranial soft tissue, and orbits are unremarkable. The paranasal sinuses are unremarkable. Temporal bones show no significant abnormality. CERVICAL SPINE: There is no acute cervical spine fracture. There is grade 1 anterolisthesis of C3 on C4, C4 on C5, C5 on C6, and C6 on C7 which is degenerative. Limited visualization of the upper lung pratt is unremarkable. The neck soft tissue structures show no significant abnormality. IMPRESSION: 1: Stable CT scan of the brain with no interval evidence of an acute intracranial process. There is no skull fracture. 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 Dictated on workstation # [id number] Dict: 11/16/22 1237 Trans: 11/16/22 1251 [id number] Interpreted by: HARDY MCGRATH MD Electronically signed by: Departure Impression Primary Impression: Fracture of pubic ramus Qualified Codes: S32.592A - Other specified fracture of left pubis, initial encounter for closed fracture Additional Impression: Fracture of sacrum Qualified Codes: S32.111A - Minimally displaced zone i fracture of sacrum, initial encounter for closed fracture Disposition: XFER SHT-TRM HOSP Condition: Stable Admissions Decision to Admit/Date: Nov 16, 2022 Time/Decision to Admit Time: 13:15 Transfer Transfer Reason: Patient preference (closer to family) Transfer Progress Notes Spoke with Dr. Sinha who accepted for admission Transfer Facility: [facility] Method of Transfer: EMS Departure-Patient Inst. Referrals: CHRIS FONTANA APRN (PCP) Primary Care Physician [facility] (Family) Primary Care Physician AXEL KRAUS MD Nov 16, 2022 12:18
[2022-11-16 12:51] LABS: BILIRUBIN,URINE NEGATIVE (NEGATIVE); CLARITY,URINE CLEAR; GLUCOSE, URINE (UA) NEGATIVE (NEGATIVE); KETONES,URINE NEGATIVE (NEGATIVE); LEUKOCYTE ESTERASE ,URINE NEGATIVE (NEGATIVE); NITRITE,URINE NEGATIVE (NEGATIVE); PROTEIN,URINE NEGATIVE (NEGATIVE)
--- NOTE | 2022-11-16 12:52 | Diagnostic Imaging Report ---
PROCEDURE: CT pelvis without contrast. TECHNIQUE: Multiple contiguous axial images were obtained through the pelvis without the use of intravenous contrast. Sagittal and coronal reformations were performed. Auto Exposure Controls were utilized during the CT exam to meet ALARA standards for radiation dose reduction. INDICATION: Left hip pain, unable to bear weight. COMPARISON: None available. FINDINGS: There are acute fractures of the bilateral sacral ala located lateral to the sacral foramen. The fractures have less than 1 mm of diastasis and are essentially nondisplaced. There are also acute fractures involving the left superior and inferior pubic rami, which are nondisplaced. No fracture in the right obturator ring. No fracture in the iliac wings. Ischial tuberosities are intact. 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 No osteolysis is seen. No free pelvic fluid. No pelvic or inguinal lymphadenopathy is appreciated. 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 IMPRESSION: 1. Acute nondisplaced fracture of the left superior and inferior pubic rami. 2. Nondisplaced fractures of the bilateral sacral ala are also acute. Dictated by: Dictated on workstation # [id number]
--- NOTE | 2022-11-16 12:52 | Diagnostic Imaging Report ---
CLINICAL INDICATION: Patient with multiple falls. EXAM: Axial Head CT without IV contrast with sagittal and coronal reformations. Axial CT scan of the cervical spine with sagittal and coronal reformations. Auto Exposure Controls were utilized during the CT exam to meet ALARA standards for radiation dose reduction. COMPARISON: Head CT without contrast dated 11/10/2022. FINDINGS: HEAD CT: There is no evidence of acute cerebral infarct, intracranial hemorrhage, or gross mass effect. Stable diffuse brain parenchymal volume loss. There are stable diffuse patchy and confluent areas of low-attenuation white matter changes involving both cerebral hemispheres, likely representing chronic small vessel ischemic disease and leukoaraiosis. There is normal kee-white matter distinction. There is no significant midline shift or herniation. There is no evidence of hydrocephalus. The basal cisterns are unremarkable. The skull, extracranial soft tissue, and orbits are unremarkable. The paranasal sinuses are unremarkable. Temporal bones show no significant abnormality. CERVICAL SPINE: There is no acute cervical spine fracture. There is grade 1 anterolisthesis of C3 on C4, C4 on C5, C5 on C6, and C6 on C7 which is degenerative. Limited visualization of the upper lung pratt is unremarkable. The neck soft tissue structures show no significant abnormality. IMPRESSION: 1: Stable CT scan of the brain with no interval evidence of an acute intracranial process. There is no skull fracture. 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 Dictated by: Dictated on workstation # [id number]
[2022-11-16 12:57] LABS: BACTERIA,URINE NEGATIVE /HPF; COLOR,URINE PALE YELLOW
[2022-11-16 13:26] LABS: BASOPHILS # (AUTO) 0.1 10^3/uL (0.0-0.1); BASOPHILS % (AUTO) 0 % (0-10); EOSINOPHILS # (AUTO) 0.1 10^3/uL (0.0-0.3); EOSINOPHILS % (AUTO) 1 % (0-10); HEMATOCRIT 33 % (35-52); HEMOGLOBIN 11.1 g/dL (11.5-16.0); LYMPHOCYTES # (AUTO) 0.7 10^3/uL (1.0-4.0); LYMPHOCYTES % (AUTO) 4 % (12-44); MEAN CORPUSCULAR HEMOGLOBIN 33 pg (25-34); MEAN CORPUSCULAR HGB CONC 33 g/dL (32-36); MEAN CORPUSCULAR VOLUME 98 fL (80-99); MEAN PLATELET VOLUME 10.9 fL (9.0-12.2); MONOCYTES # (AUTO) 0.8 10^3/uL (0.0-1.0); MONOCYTES % (AUTO) 5 % (0-12); NEUTROPHILS # (AUTO) 13.2 10^3/uL (1.8-7.8); NEUTROPHILS % (AUTO) 89 % (42-75); PLATELET COUNT 171 10^3/uL (130-400); WHITE BLOOD COUNT 14.9 10^3/uL (4.3-11.0)
[2022-11-16 13:34] LABS: ALBUMIN 3.2 GM/DL (3.2-4.5); BILIRUBIN,TOTAL 0.5 MG/DL (0.1-1.0); CALCIUM 9.8 MG/DL (8.5-10.1); CREATININE SERUM 0.91 MG/DL (0.60-1.30); POTASSIUM 4.6 MMOL/L (3.6-5.0); TOTAL PROTEIN 5.6 GM/DL (6.4-8.2)
[2022-11-16 13:40] LABS: PROTHROMBIN TIME PATIENT 23.1 SEC (12.2-14.7)
[2022-11-16 13:46] LABS: BAND NEUTROPHILS 1 %; BASOPHILS % (MANUAL) 0 %; EOSINOPHILS % (MANUAL) 1 %; LYMPHOCYTES % (MANUAL) 5 %; MONOCYTES % (MANUAL) 6 %; NEUTROPHILS % (MANUAL) 87 %
[2022-11-16 13:47] LABS: CRENATED RBC SLIGHT; ELLIPT/OVALOCYTES SLIGHT; PLATELET ESTIMATE NORMAL
[2022-11-16 15:08] VITALS: BP 119/61
--- NOTE | 2022-11-16 15:13 | CONSULTATION REPORT ---
DATE OF SERVICE: 11/16/2022 REASON FOR CONSULTATION: Left pubic rami fractures. HISTORY OF PRESENT ILLNESS: The patient is an 89-year-old female who has had multiple mechanical falls over the last week and presented to an outside facility where she was found to have pubic rami fractures on the left and sacral ala fractures, which were nondisplaced posteriorly. I was asked for recommendations. Recommendations are weightbearing as tolerated with a walker. These were nonoperative injuries. We will be happy to see the patient as an outpatient as needed. Recommended activities as the patient can tolerate with pain control. Job ID: [id number] DocumentID: [id number] Dictated Date: 11/16/2022 14:59:51 Warehouse Receiver Date: 11/16/2022 15:11:00 Dictated By: THERESE RASCON MD
== END 2022-11-16 15:08 | disposition short-term general hospital (02) ==
LOC: EDUNIT# 12:04 → ER FS 12:05
DX: S32.592A Other specified fracture of left pubis, initial encounter for closed fracture (principal); S32.10XA Unspecified fracture of sacrum, initial encounter for closed fracture; I48.91 Unspecified atrial fibrillation; Z79.01 Long term (current) use of anticoagulants; Z96.641 Presence of right artificial hip joint; W01.198A Fall on same level from slipping, tripping and stumbling with subsequent striking against other object, initial encounter
CPT/HCPCS: 36415; 70450; 72125; 72192; 80053; 81000; 85007; 85027; 85610; 85730